=== PATIENT | female | born 1985 | race Caucasian/White ===

== ENCOUNTER 2023-10-09 22:03 | Emergency (ER) | payer BC, SELFPAY ==
[2023-10-09 22:09] VITALS: BP 134/92
[2023-10-09 22:21] LABS: Urine Albumin 1+ (Neg - Trace); Urine Bilirubin Negative (Negative); Urine Character Slightly Cloudy (Clear); Urine Color Yellow; Urine Glucose Negative (Negative); Urine Ketone Trace (Negative); Urine Leukocyte Trace (Negative); Urine Nitrite Negative (Negative); Urine Occult Blood 4+ (Negative); Urine Specific Gravity 1.025 (<1.030); Urine Urobilinogen Negative (Neg - 1+)
[2023-10-09 22:25] LABS: HCG, Urine Qualitative Screen Negative
[2023-10-09 22:28] LABS: Urine Red Blood Cell >100 /HPF (0-2); Urine Squamous Cell 16-20 /LPF (Few); Urine White Cell 0-2 /HPF (0-5)
[2023-10-09 23:41] VITALS: BMI 39.9
[2023-10-09] MEDS: ZOFRAN 4 MG IV (23:58)
[2023-10-09] MEDS: DILAUDID 1 MG IV (23:58)
[2023-10-10 00:18] LABS: % Basophils 0.6 % (0-2); % Eosinophils 3.6 % (0-6); % Immature Granulocytes 0.3 % (0-0.5); % Monocytes 8.3 % (1.7-9.3); % Neutrophils 49.2 % (42.2-75.2); Absolute Basophils 0.1 10^3/uL (0-0.2); Absolute Eosinophils 0.4 10^3/uL (0-0.7); Absolute Lymphocytes 3.8 10^3/uL (1.2-3.4); Absolute Monocytes 0.8 10^3/uL (0.1-0.6); Hematocrit 35.2 % (37.0-47.0); Hemoglobin 12.8 g/dL (12.0-16.0); Mean Corp Hgb Conc. 36.4 g/dL (33.0-37.0); Mean Corpuscular Hgb 32.2 pg (27.0-31.0); Mean Corpuscular Volume 88.7 fL (81.0-99.0); Nucleated Red Blood Cells % 0 %; Platelet Count 247 10^3/uL (130-400); Red Blood Cell Count 3.97 10^6/uL (4.20-5.40); Red Cell Dist. Width 13.1 % (11.5-14.5); White Blood Cell Count 10.1 10^3/uL (4.8-10.8)
--- NOTE | 2023-10-10 00:41 | ED.GENMED ---
History of Present Illness
General
Chief Complaint: Flank Pain
Source: patient
Exam Limitations: none
Time Seen by Provider: 10/09/23 23:47
Nursing documentation reviewed up to this point in time: agreed with
Travel History
Have you had any contact with someone who has COVID-19?: No
Do you have any symptoms of coronavirus? Fever > 100 degrees, chills, cough, shortness of breath, sore throat, loss of taste or smell, muscle aches, or headache?: No
History of Present Illness
History of Present Illness:
The patient is a 38-year-old female with a past medical history of kidney stones who comes in with complaints of 5 days of right flank pain. Patient describes it as severe. The pain is associated with nausea. She denies vomiting and fever.
Past History
Past History
ED Past Medical History: Asthma and Other (Kidney stones)
ED Past Surgical History: (X3), Gynecological (Tubel) and Tonsilectomy
Social History
Tobacco: Smoker (1/2 pack daily)
Alcohol: Occasional
Drug: None
Personal:
Living: with family
Employment: Employed
Family History
Family History: Other (Noncontributory)
Review of Systems
Review of Systems
Allergies reviewed?: Yes
All Other Systems: ROS reviewed and negative except as documented in HPI and ROS
Constitutional: Reports no symptoms
EENT: Reports no symptoms
Respiratory: Reports no symptoms
Cardiac: Reports no symptoms
ABD/GI: Reports nausea
: Reports flank pain
Musculoskeletal: Reports no symptoms
Skin: Reports no symptoms
Neurological: Reports no symptoms
Endocrine: Reports no symptoms
Hematologic/Lymphatic: Reports no symptoms
Psychiatric: Reports no symptoms
Phy Exam
Physical Exam
Physical Exam:
Physical Exam
General: no apparent distress, not acutely ill
Neck: supple. no meningeal signs. normal psoterior pharynx
Heart: s1/s2 regular rate and rhythm, no murmur. equal radial pulses.
Lungs: no acute respiratory distress. clear bilaterally
Abdomen: normal bowel sounds. not tender. no CVAT
Neuro: alert and oriented. no focal neurological deficits
Skin: no rash
Psychiatric: well kept. interactive and cooperative
Extremities: no edema. no calf tenderness. negative homans. good distal pulses
Course
Orders/Labs/Results
Orders:
Orders
10/09/23 22:11
Test Result ONCE
10/09/23 22:16
HCG, Urine Qualitative Screen Urgent
Date Specimen was Collected: 10/09/23
Time Specimen was Collected: 22:11
Urinalysis Reflex To Culture Urgent
Date Specimen was Collected: 10/09/23
Time Specimen was Collected: 22:11
Urine Microscopic Reflex Cult Urgent
10/09/23 23:52
HYDROmorphone [Dilaudid] 0.5 mg PO NOW STA
10/09/23 23:54
HYDROmorphone [Dilaudid] 1 mg IV NOW STA
Ondansetron Injectable [Zofran] 4 mg .ROUTE .STK-MED ONE
10/09/23 23:57
Ondansetron Injectable [Zofran] 4 mg IV NOW STA
10/10/23 00:10
CBC/With Diff [Complete Blood Count/With Diff] Urgent
Comprehensive Metabolic Panel Urgent
10/10/23 00:16
CT Abd/pel Without Iv Or Oral Urgent
Comment:
Reason For Exam: R flank pain
10/10/23 01:01
0.9% Sodium Chloride 1000 ml [Nss] 1,000 ml IV BOLUS
10/10/23 01:22
Oxycodone/Acetaminophen [Percocet 5/325] 2 tablet PO NOW STA
10/10/23 02:36
Naproxen [Naprosyn] 500 mg PO NOW STA
10/10/23 02:37
Tamsulosin [Flomax] 0.4 mg PO NOW STA
Abnormal Lab Results
10/09/23 10/10/23
22:16 00:10
RBC 3.97 L 10^6/uL
(4.20-5.40)
Hct 35.2 L %
(37.0-47.0)
MCH 32.2 H pg
(27.0-31.0)
Absolute Lymphs (auto) 3.8 H 10^3/uL
(1.2-3.4)
Absolute Monos (auto) 0.8 H 10^3/uL
(0.1-0.6)
Sodium 133 L mmol/L
(135-145)
Chloride 108 H mmol/L
(98-107)
Carbon Dioxide 19 L mmol/L
(22-30)
Glucose 107 H mg/dl
(70-99)
Urine Ketones Trace A
(Negative)
Ur Occult Blood Reflex 4+ A
(Negative)
Leukocyte Esterase Rfl Trace A
(Negative)
Urine RBC >100 A /HPF
(0-2)
Urine Albumin (Reflex) 1+ A
(Neg - Trace)
10/10/23 00:10
10/10/23 00:10
Vital Signs
Initial and Last Documented VS:
Initial Vital Signs
Temp Pulse Resp BP Pulse Ox
97.8 F 89 18 134/92 99
10/09/23 22:09 10/09/23 22:09 10/09/23 22:09 10/09/23 22:09 10/09/23 22:09
Last Documented Vital Signs
Temp Pulse Resp BP Pulse Ox
97.8 F 80 16 130/84 95
10/09/23 22:09 10/10/23 02:50 10/10/23 02:50 10/10/23 02:50 10/10/23 02:50
MDM/Problems Addressed
Differential Diagnosis Includes:
Acute ureteral colic, pyelonephritis, hydronephrosis
MDM/Problems Addressed:
Patient presents with acute flank pain
Chronic conditions affecting care:
History of kidney stones
Acute Exacerbation and/or Progression of Chronic Illness:
Patient is acutely hypertensive, I suspect due to pain
*Radiology
Radiology exam reviewed: radiology read reviewed
*Pulse Oximetry
Patient hypoxic: no
*EKG
Interpreted by ED Provider?: NA
*Extension Work Director Interpretation
Rate: Extension Work Director- N/A
*Critical Care Note
Total Time (30-74mins, 75-104mins- exclusive of procedures): Not Applicable
Data Reviewed
Review of Other/Old Records Reveals: Radiology Studies (CT report reviewed from 06/29/2022 which shows multiple bilateral kidney stones)
Source: patient and family
Patient Management
Social determinants of health affecting care: Strong social support
Discussion with other providers: Other (Discussed case with Dr. Apple who feels that patient could have close outpatient follow-up given that she has no fevers or chills and her pain is tolerable)
ED Attending Note
-
Portions of this chart may have been created with voice recognition software.� Occasional wrong word or��sound alike� substitutions may have occurred due to the inherent limitations of voice recognition software.
Discharge Plan
Departure
Patient Disposition: Home (Routine Discharge)
Date of Disposition: 10/10/23
Time of Disposition: 02:35
Patient with high blood pressure during this ER visit?: Yes
Condition: Good
Covid-19: Not Applicable
Discharge Problem:
Right ureteral calculus
Instructions: Renal Colic (DC), Narcotic Pain Medication
Prescriptions:
New
ondansetron 4 mg tablet,disintegrating
4 mg PO Q6H PRN (Reason: nausea and vomiting) Qty: 14 0RF
tamsulosin [Flomax] 0.4 mg capsule
0.4 mg PO DAILY 7 Days Qty: 7 0RF
oxycodone-acetaminophen [Percocet] 5-325 mg tablet
1 - 2 tab PO Q6HPRN PRN (Reason: pain) Qty: 10 0RF
No Action
ondansetron 4 MG tablet,disintegrating
4 mg PO TIDPRN PRN (Reason: nausea) Qty: 6 0RF
prednisone 20 MG tablet
40 mg PO DAILY Qty: 6 0RF
hydrocodone-acetaminophen 5-325 mg tablet
1 tab PO Q6H PRN (Reason: pain) Qty: 10 0RF
tamsulosin [Flomax] 0.4 mg capsule
0.4 mg PO DAILY Qty: 7 0RF
oxycodone-acetaminophen [Percocet] 5-325 mg Tablet
1 tab PO Q6HPRN PRN (Reason: pain) Qty: 10 0RF
ondansetron 4 mg Tablet,Disintegrating
4 mg PO TIDPRN PRN (Reason: nausea/vomiting) Qty: 12 0RF
Referrals:
Jackson Apple MD [Active] -
Gasper Dickey DO [Family Provider] -
Stand Alone Forms: Return to Work
Activity Restrictions/Additional Instructions:
Return with fever, chills or vomiting. Call urology later today to schedule an appointment for this week
Interventions
Interventions:
*Risk Screen - Suicide Last Done: 10/09/23 22:09
*General Assessment Last Done: 10/09/23 22:09
*Neglect/Abuse Screening Last Done: 10/09/23 22:09
ED- Fall Risk Assessment Last Done: 10/09/23 23:39
*ED COVID-19 Vaccine History Last Done: 10/09/23 22:09
MC-Skccmd-Ljhybrpwcl Assessment Last Done: 10/09/23 23:39
ED-Female Genitourinary Assessment Last Done: 10/09/23 23:39
[2023-10-10 00:45] LABS: ALT (SGPT) 20 U/L (0-35); AST (SGOT) 20 U/L (14-36); Albumin 4.1 g/dl (3.5-5.0); Alkaline Phosphatase 59 U/L (38-126); Blood Urea Nitrogen 16 mg/dl (7-17); Carbon Dioxide 19 mmol/L (22-30); Chloride 108 mmol/L (98-107); Estimated Creatinine Clearance 93 ml/min; Glucose 107 mg/dl (70-99); Potassium 4.1 mmol/L (3.5-5.1); Sodium 133 mmol/L (135-145); Total Bilirubin 0.3 mg/dl (0.2-1.3); Total Protein 6.6 g/dl (6.3-8.2); eGFR > 60.00
[2023-10-10 01:19] VITALS: BP 129/78
[2023-10-10] MEDS: NSS 1000 IV (01:28)
[2023-10-10] MEDS: PERCOCET 5/325 2 TABLET PO (01:29)
[2023-10-10] MEDS: NAPROSYN 500 MG PO (02:41)
[2023-10-10] MEDS: FLOMAX 0.400000000000000022 MG PO (02:42)
[2023-10-10 02:50] VITALS: BP 130/84
== END 2023-10-10 03:00 | disposition home or self-care (01) ==
LOC: EMR 22:03
PROVIDERS: EMERGENCY PHYSICIAN Emergency Medicine; FAMILY PHYSICIAN Family Medicine
DX: N20.1 Calculus of ureter (principal); R03.0 Elevated blood-pressure reading, without diagnosis of hypertension; F17.210 Nicotine dependence, cigarettes, uncomplicated; Z87.442 Personal history of urinary calculi
CPT/HCPCS: 99284; 96360; 74176; 80053; 81003; 81015; 81025; 85025

== ENCOUNTER → 2023-10-16 16:59 | Day surgery (SDC) | payer BC, SELFPAY ==
[2023-10-16] VITALS (11 sets, daily range): BP systolic 109–136; BP diastolic 56–93; BMI 40.2
[2023-10-16 11:32] LABS: Urine Albumin Negative (Neg - Trace); Urine Bilirubin Negative (Negative); Urine Character Clear (Clear); Urine Color Straw; Urine Glucose Negative (Negative); Urine Ketone Negative (Negative); Urine Leukocyte Negative (Negative); Urine Nitrite Negative (Negative); Urine Occult Blood Negative (Negative); Urine Specific Gravity 1.005 (<1.030); Urine Urobilinogen Negative (Neg - 1+)
--- NOTE | 2023-10-16 12:42 | ED.GENMED ---
History of Present Illness
General
Chief Complaint: Flank Pain
Source: patient
Exam Limitations: none
Time Seen by Provider: 10/16/23 12:30
Travel History
Have you had any contact with someone who has COVID-19?: No
Do you have any symptoms of coronavirus? Fever > 100 degrees, chills, cough, shortness of breath, sore throat, loss of taste or smell, muscle aches, or headache?: No
History of Present Illness
History of Present Illness:
See MDM
Past History
Past History
ED Past Medical History: Asthma and Other (Kidney stones)
ED Past Surgical History: (X3), Gynecological (Tubel) and Tonsilectomy
Social History
Tobacco: Smoker (1/2 pack daily)
Alcohol: Occasional
Drug: None
Personal:
Living: with family
Employment: Employed
Family History
Family History: Other (Noncontributory)
Phy Exam
Physical Exam
Physical Exam:
See MDM
Course
Orders/Labs/Results
Orders:
Orders
10/16/23 11:19
UA Reflex to Culture [Urinalysis Reflex To Culture] Urgent
Date Specimen was Collected: 10/16/23
Time Specimen was Collected: 11:09
10/16/23 12:42
HYDROmorphone [Dilaudid] 0.5 mg IV NOW STA
Ondansetron Injectable [Zofran] 4 mg IV NOW STA
10/16/23 12:53
Complete Blood Count/With Diff Urgent
Comprehensive Metabolic Panel Urgent
Vital Signs
Initial and Last Documented VS:
Initial Vital Signs
Temp Pulse Resp BP Pulse Ox
98.1 F 86 20 135/93 98
10/16/23 11:06 10/16/23 11:06 10/16/23 11:06 10/16/23 11:06 10/16/23 11:06
Last Documented Vital Signs
Temp Pulse Resp BP Pulse Ox
98.1 F 86 20 135/93 98
10/16/23 11:06 10/16/23 11:06 10/16/23 11:06 10/16/23 11:06 10/16/23 11:06
MDM/Problems Addressed
Differential Diagnosis Includes:
HPI and MDM Narrative:
38-year-old female presenting back to the emergency department with persistent right flank pain. She has been dealing with this pain for 2 weeks. She was in the emergency department 1 week ago and diagnosed with distal ureteral stone. Patient was
placed on Flomax and pain medicine. She is having trouble with a side effect of the pain medicine. She has been straining her urine and has not noticed the stone. She states her pain has not moved
Physical exam
General: Well appearing and non-toxic
HEENT: protecting airway
Neck: appears supple
CV: No evidence of cyanosis
Resp: No accessory muscle use
Abd: Non-distended. Right flank tenderness. No rebound
Extremities: No deformities
Neuro: alert
Psych: Normal affect
Skin: Intact. No rash
Problems Addressed including Acute and Chronic Conditions affecting care:
1. Right flank pain
Acuity: acute
Prognosis: stable
Details: Given persistent symptoms, will give IV pain medicine and discussed case with urology
Updates
Case discussed with urology who will evaluate and bring to the OR with the plan of discharging later today
Differential Diagnosis (but not limited to): Renal colic, obstructive kidney stone
Testing considered: Repeat CT but will discuss case with urology first
Drug therapy (if applicable): OTC meds, please see d/c instruction regarding Rx drugs
Amount and/or Complexity of Data Reviewed
Clinical info obtained from: Patient
External data reviewed: N/A
Labs I independently reviewed (but not limited to): Urinalysis negative for infection
Radiology: N/A
Pulse Ox: not hypoxic
EKG independently reviewed: N/A
Automotive Upholsterer: N/A
Critical Care: N/A
Risk of Complication:
Social Determinants of health: Good social support
Discussed with other providers: Urology
Escalation of Care includes Admit/Obs: Given persistent pain, urology will evaluate and bring to the OR for cystoscopy for possible stent placement and possible stone retrieval
Occasional wrong word or 'sound a like' substitutions may have occurred due to the inherent limitations of voice recognition software. Read the chart carefully and recognize, using context, where substitutions have occurred.
*Critical Care Note
Total Time (30-74mins, 75-104mins- exclusive of procedures): Not Applicable
ED Attending Note
-
Portions of this chart may have been created with voice recognition software.� Occasional wrong word or��sound alike� substitutions may have occurred due to the inherent limitations of voice recognition software.
Discharge Plan
Departure
Patient Disposition: OR
Date of Disposition: 10/16/23
Time of Disposition: 13:00
Presentation/result/management discussed w/ accepting MD/DO: Urology
Discharge Problem:
Kidney stone on right side
Prescriptions:
No Action
ondansetron 4 MG tablet,disintegrating
4 mg PO TIDPRN PRN (Reason: nausea) Qty: 6 0RF
prednisone 20 MG tablet
40 mg PO DAILY Qty: 6 0RF
hydrocodone-acetaminophen 5-325 mg tablet
1 tab PO Q6H PRN (Reason: pain) Qty: 10 0RF
tamsulosin [Flomax] 0.4 mg capsule
0.4 mg PO DAILY Qty: 7 0RF
oxycodone-acetaminophen [Percocet] 5-325 mg Tablet
1 tab PO Q6HPRN PRN (Reason: pain) Qty: 10 0RF
ondansetron 4 mg Tablet,Disintegrating
4 mg PO TIDPRN PRN (Reason: nausea/vomiting) Qty: 12 0RF
ondansetron 4 mg tablet,disintegrating
4 mg PO Q6H PRN (Reason: nausea and vomiting) Qty: 14 0RF
tamsulosin [Flomax] 0.4 mg capsule
0.4 mg PO DAILY 7 Days Qty: 7 0RF
oxycodone-acetaminophen [Percocet] 5-325 mg tablet
1 - 2 tab PO Q6HPRN PRN (Reason: pain) Qty: 10 0RF
Interventions
Interventions:
*Risk Screen - Suicide Last Done: 10/16/23 12:48
*General Assessment Last Done: 10/16/23 11:06
*Neglect/Abuse Screening Last Done: 10/16/23 12:48
ED- Fall Risk Assessment Last Done: 10/16/23 12:48
*ED COVID-19 Vaccine History Last Done: 10/16/23 12:48
US-Fkjjwp-Slmsocbvjz Assessment Last Done: 10/16/23 12:48
[2023-10-16] MEDS: DILAUDID 0.5 MG IV ×2 (12:51→16:23)
[2023-10-16] MEDS: ZOFRAN 4 MG IV (12:52)
[2023-10-16 13:00] LABS: % Basophils 0.6 % (0-2); % Eosinophils 7.1 % (0-6); % Immature Granulocytes 0.2 % (0-0.5); % Lymphocytes 41.5 % (20.5-51.1); % Monocytes 7.9 % (1.7-9.3); % Neutrophils 42.7 % (42.2-75.2); Absolute Eosinophils 0.5 10^3/uL (0-0.7); Absolute Lymphocytes 2.6 10^3/uL (1.2-3.4); Absolute Monocytes 0.5 10^3/uL (0.1-0.6); Absolute Neutrophils 2.7 10^3/uL (1.4-6.5); Hematocrit 36.7 % (37.0-47.0); Hemoglobin 13.1 g/dL (12.0-16.0); Mean Corp Hgb Conc. 35.7 g/dL (33.0-37.0); Mean Corpuscular Hgb 32.9 pg (27.0-31.0); Mean Corpuscular Volume 92.2 fL (81.0-99.0); Mean Platelet Volume 9.9 fL (7.4-10.4); Nucleated Red Blood Cells % 0 %; Platelet Count 228 10^3/uL (130-400); Red Blood Cell Count 3.98 10^6/uL (4.20-5.40); Red Cell Dist. Width 13.1 % (11.5-14.5); White Blood Cell Count 6.3 10^3/uL (4.8-10.8)
[2023-10-16 13:19] LABS: ALT (SGPT) 23 U/L (0-35); AST (SGOT) 21 U/L (14-36); Albumin 4.2 g/dl (3.5-5.0); Alkaline Phosphatase 61 U/L (38-126); Blood Urea Nitrogen 12 mg/dl (7-17); Carbon Dioxide 22 mmol/L (22-30); Chloride 109 mmol/L (98-107); Estimated Creatinine Clearance 120 ml/min; Glucose 96 mg/dl (70-99); Potassium 4.4 mmol/L (3.5-5.1); Sodium 136 mmol/L (135-145); Total Bilirubin 0.5 mg/dl (0.2-1.3); Total Protein 6.8 g/dl (6.3-8.2); eGFR > 60.00
[2023-10-16 13:36] LABS: HCG, Serum Qualitative Screen Negative
[2023-10-16] MEDS: OFIRMEV 100 IV (14:50)
--- NOTE | 2023-10-16 17:45 | HP.FOC2 ---
Focused History & Physical
Chief Complaint
HPI:
Chief Complaint: kidney stone
HPI / Indication for Planned Procedure: 38F prior hx of stones, p/w persistent pain 2 weeks after dx of R distal ureteral stone
No fevers/chills
labs and vitals stable
UA negative for UTI
Intractable pain despite meds at home
Relevant Past Medical History: Other (kidney stone)
Relevant Social History: Tobacco Use
Relevant Family History: Negative
Relevant Past Surgical History: Positive for (stone procedure)
Review of Systems
Review of Pertinent Systems: All Systems Negative
Medication
See Medication form for detailed medications: No
Medication List (including Herbals & OTC):
naproxen sodium 220 mg tablet (Aleve) 440 mg PO Q6HPRN PRN mild pain 10/16/23
ondansetron 4 mg disintegrating tablet 4 mg PO Q6H PRN nausea/vomiting 10/16/23
oxycodone-acetaminophen 5 mg-325 mg tablet 1 tab PO Q6H PRN severe pain 10/16/23
tamsulosin 0.4 mg capsule 0.4 mg PO HS 10/16/23
Medications Reviewed: Yes
Allergies and Reactions
Patient has Allergies: Yes
Noted Allergies and Reactions:
Allergy/AdvReac Type Severity Reaction Status Date / Time
Fish Containing Products Allergy vomit-can Verified 10/16/23 15:35
eat
shellfish
but not
regular
fish
ibuprofen Allergy Swelling Verified 12/13/22 17:56
Pertinent Physical Exam
All Other Systems: Negative
Head/Neck: Normal
Lungs: Normal
Abdomen: Normal
Extremities: Normal
Diagnosis / Assessment
38F with intractable pain from 7mm R distal ureteral stone
Plan / Procedure
OR for R ureteroscopy, laser lithotripsy, ureteral stent
ancef prophylaxis
NPO
Likely post op discharge from PACU
Outpatient follow up
Anesthesia/Sedation to be done by Anesthesia Provider: Yes
[2023-10-16] MEDS: ANCEF 10 IV (17:57)
[2023-10-16] MEDS: Pyridium 200 MG PO (19:00)
[2023-10-22 00:50] LABS: Stone Analysis Mass 26 mg
== END ==
LOC: EMR 10:58 → PACU 16:59
PROVIDERS: Physician Assistant; ATTENDING PHYSICIAN Urology; EMERGENCY PHYSICIAN Student in an Organized Health Care Education/Training Program; FAMILY PHYSICIAN Family Medicine
DX: N20.1 Calculus of ureter (principal)
CPT/HCPCS: 52353; 74018; 76000; 80053; 81003; 82365; 84703; 85025; 96374; 96375; 96376; 99284; A4300; C1758; C1769; C1894

== ENCOUNTER → 2024-07-14 18:00 | Outpatient (REF) | payer OTHER, SELFPAY | LOC: RAD 18:00 | PROVIDERS: ATTENDING PHYSICIAN Emergency Medicine | DX: J40 Bronchitis, not specified as acute or chronic (principal) | CPT/HCPCS: 71046 ==

== ENCOUNTER 2024-07-17 14:54 | Emergency (ER) | payer OTHER, SELFPAY ==
[2024-07-17 14:55] VITALS: BP 150/93
--- NOTE | 2024-07-17 16:49 | ED.GENMED ---
History of Present Illness
General
Chief Complaint: Breathing Problem
Time Seen by Provider: 07/17/24 16:49
History of Present Illness
History of Present Illness:
TIME OF INITIAL ENCOUNTER: 5 PM
HPI: The patient presents due to shortness of breath. She saw her primary care doctor who ordered an x-ray and reportedly did not show pneumonia. The patient states that her primary placed her on prednisone. She states that she does not tolerate
the prednisone and has 1 more dose of it left. The doctor also thought she may have a pneumonia and therefore placed her on doxycycline. She has a nebulizer at home. She is smoking less this week now that she has been feeling sick. She has
associated URI symptoms
EXAM:
GENERAL: Well appearing in no distress
HEENT: Moist oral mucosa, mild bulging of left TM with no evidence of acute bacterial otitis media
CARDIOVASCULAR: No murmurs, normal heart rate, regular rhythm, No chest wall tenderness, there are no rales, wheeze noted only with forceful cough
PULMONARY: No respiratory distress, breath sounds are clear and equal
ABDOMEN: Soft with no peritoneal signs, no tenderness
NEUROLOGIC: Excellent strength all extremities, no coordination deficits
PSYCHIATRIC: Appropriate mental status, normal insight and judgement
EXTREMITIES: Nontender, no edema, moves all extremities equally
SKIN: No rash, no lesions
NUMBER AND COMPLEXITY OF PROBLEMS ADDRESSED AT THE ENCOUNTER
� Chronic conditions affecting care: Asthma, smoker, 'sports induced asthma'
� Acute Exacerbation and/or Progression of Chronic Illness: This is an acute problem
� Differential Diagnosis includes: Asthma, viral bronchitis, pneumonia, highly doubt pneumothorax
AMOUNT AND/OR COMPLEXITY OF DATA TO BE REVIEWED AND ANALYZED
� I performed an independent evaluation of and my interpretation is:
EKG:
CT:
X-rays: Chest x-ray personally reviewed and agree with radiologist interpretation that there is no acute abnormality
Laboratory Studies:
Other:
� Review of other/old records: I reviewed records, the patient was seen here in October with a kidney stone; chest x-ray from 07/14/2024 showed no acute abnormality
� Clinical information was obtained by an independent historian: Spoke to mother at bedside
� Prescriptions/Medications Considered but not given:
� Further testing considered but not performed:
RISK OF COMPLICATIONS AND/OR MORBIDITY OR MORTALITY OF PATIENT MANAGEMENT
� Social determinants of health affecting care: Lives at home
� Discussion with other providers:
� Escalation of care including admission/observation vs risk of discharge considered: Given worsening symptoms, will try DuoNeb here and also obtain another chest x-ray. Favor more of a viral bronchitis. Strongly encourage
patient to stop smoking.
ANY OTHER UPDATES:
7:15 PM: I reassessed patient. She does not think that the DuoNeb really did all that much. She does not want to continue steroids and has just 1 dose left. Her vital signs are unremarkable and she is in no respiratory distress. She does
describe some pressure buildup in her ear/head�I looked in her ears and there may be some bulging of the left TM�recommended Zyrtec-D.
Past History
Past History
ED Past Medical History: Asthma and Other (Kidney stones)
ED Past Surgical History: (X3), Gynecological (Tubel) and Tonsilectomy
Social History
Tobacco: Smoker (1/2 pack daily)
Alcohol: Occasional
Drug: None
Personal:
Living: with family
Employment: Employed
Family History
Family History: Other (Noncontributory)
Phy Exam
Physical Exam
Physical Exam:
See HPI
Course
Orders/Labs/Results
Orders:
Orders
07/17/24 16:59
Ipratropium/Albuterol Sulfate [Duoneb] 3 ml INH R NOW ONE
CR Chest - 2 Views Urgent
Comment:
Reason For Exam: worsening sob wheeze
Vital Signs
Initial and Last Documented VS:
Initial Vital Signs
Temp Pulse Resp BP Pulse Ox
97.9 F 84 19 150/93 96
07/17/24 14:55 07/17/24 14:55 07/17/24 14:55 07/17/24 14:55 07/17/24 14:55
Last Documented Vital Signs
Temp Pulse Resp BP Pulse Ox
97.9 F 84 19 150/93 96
07/17/24 14:55 07/17/24 14:55 07/17/24 14:55 07/17/24 14:55 07/17/24 17:16
*Critical Care Note
Total Time (30-74mins, 75-104mins- exclusive of procedures): Not Applicable
ED Attending Note
-
Portions of this chart may have been created with voice recognition software.� Occasional wrong word or��sound alike� substitutions may have occurred due to the inherent limitations of voice recognition software.
Discharge Plan
Departure
Patient Disposition: Home (Routine Discharge)
Date of Disposition: 07/17/24
Time of Disposition: 19:21
Patient with high blood pressure during this ER visit?: Yes
Discharge Problem:
Acute viral syndrome, Acute bronchitis
Instructions: Acute Bronchitis, Adult (DC)
Prescriptions:
No Action
oxycodone-acetaminophen 5-325 mg Tablet
1 tab PO Q6H PRN (Reason: severe pain)
Patient Comments:
10/16/2023, pt. filled this med. on 10/10/2023 for 10 tablets according to PDMP.
tamsulosin 0.4 mg Capsule
0.4 mg PO HS
Patient Comments:
10/16/2023, pt. filled this med. on 10/10/2023 and is instructed to take one capsule daily for 7 days.
naproxen sodium [Aleve] 220 mg Tablet
440 mg PO Q6HPRN PRN (Reason: mild pain)
ondansetron 4 mg Tablet,Disintegrating
4 mg PO Q6H PRN (Reason: nausea/vomiting)
Referrals:
Gasper Dickey, DO [Family Provider] -
Activity Restrictions/Additional Instructions:
I recommend trying Zyrtec-D�ydean can get this at a pharmacy counter. Zyrtec is antihistamine and the D means pseudoephedrine which is a decongestant. This may help the sensation that you are having in the ears/head. Although I do not see any clear
indication for antibiotics I think would be reasonable to continue the antibiotics. The chest x-ray shows no sign of bacterial pneumonia. Return here if worse or any other concerns. We did give you a breathing treatment with both albuterol and
Atrovent.
Interventions
Interventions:
*Risk Screen - Suicide Last Done: 07/17/24 14:55
*General Assessment Last Done: 07/17/24 14:55
*Neglect/Abuse Screening Last Done: 07/17/24 14:55
ED- Fall Risk Assessment Last Done: 07/17/24 17:16
*ED COVID-19 Vaccine History Last Done: 07/17/24 17:15
ED- Cardiac Assessment Last Done: 07/17/24 17:16
ED- Pulmonary Assessment Last Done: 07/17/24 17:16
Discharge Date and Time
Print Language: JAPANESE
[2024-07-17] MEDS: DUONEB 3 ML INH (17:12)
[2024-07-17 17:15] VITALS: BMI 42.1
== END 2024-07-17 19:43 | disposition home or self-care (01) ==
LOC: EMR 14:54
PROVIDERS: EMERGENCY PHYSICIAN Emergency Medicine; FAMILY PHYSICIAN Family Medicine
DX: J20.9 Acute bronchitis, unspecified (principal); B34.9 Viral infection, unspecified; F17.200 Nicotine dependence, unspecified, uncomplicated; J45.909 Unspecified asthma, uncomplicated
CPT/HCPCS: 94640; 99283; 71046

== ENCOUNTER 2024-12-19 16:30 | Observation (INO) | payer OTHER, SELFPAY ==
[2024-12-19] VITALS (7 sets, daily range): BP systolic 115–155; BP diastolic 72–99; BMI 39.0
[2024-12-19] MEDS: DILAUDID 0.5 MG IV ×4 (12:12→15:41)
[2024-12-19] MEDS: ZOFRAN 4 MG IV (12:13)
[2024-12-19 12:16] LABS: Urine Albumin 3+ (Neg - Trace); Urine Bilirubin Negative (Negative); Urine Character Clear (Clear); Urine Color Yellow; Urine Glucose Negative (Negative); Urine Ketone 1+ (Negative); Urine Leukocyte 1+ (Negative); Urine Nitrite Negative (Negative); Urine Occult Blood 4+ (Negative); Urine Specific Gravity 1.025 (<1.030); Urine Urobilinogen 1+ (Neg - 1+)
[2024-12-19 12:19] LABS: % Basophils 0.7 % (0-2); % Eosinophils 5.5 % (0-6); % Immature Granulocytes 0.2 % (0-0.5); % Lymphocytes 35.5 % (20.5-51.1); % Monocytes 8.8 % (1.7-9.3); % Neutrophils 49.3 % (42.2-75.2); Absolute Basophils 0.1 10^3/uL (0-0.2); Absolute Eosinophils 0.5 10^3/uL (0-0.7); Absolute Lymphocytes 2.9 10^3/uL (1.2-3.4); Absolute Monocytes 0.7 10^3/uL (0.1-0.6); Absolute Neutrophils 4.1 10^3/uL (1.4-6.5); Hematocrit 38.5 % (37.0-47.0); Hemoglobin 13.6 g/dL (12.0-16.0); Mean Corp Hgb Conc. 35.3 g/dL (33.0-37.0); Mean Corpuscular Hgb 32.2 pg (27.0-31.0); Mean Corpuscular Volume 91.2 fL (81.0-99.0); Mean Platelet Volume 10.3 fL (7.4-10.4); Nucleated Red Blood Cells % 0 %; Platelet Count 232 10^3/uL (130-400); Red Blood Cell Count 4.22 10^6/uL (4.20-5.40); Red Cell Dist. Width 13.5 % (11.5-14.5); White Blood Cell Count 8.2 10^3/uL (4.8-10.8)
--- NOTE | 2024-12-19 12:25 | ED.GENMED ---
History of Present Illness
General
Chief Complaint: Flank Pain
Source: patient
Exam Limitations: none
Time Seen by Provider: 12/19/24 12:10
History of Present Illness
History of Present Illness:
39-year-old female presents complaining of 7 to 10 days worth of right flank pain that radiates to the lower abdomen. Intermittent in nature with associated nausea and vomiting. She has a known history of kidney stones. She denies fever. She
does note urinary symptoms. No chest pain or shortness of breath. No other
Past History
Past History
ED Past Medical History: Asthma and Other (Kidney stones)
ED Past Surgical History: (X3), Gynecological (Tubel) and Tonsilectomy
Social History
Tobacco: Smoker (1/2 pack daily)
Alcohol: Occasional
Drug: None
Personal:
Living: with family
Employment: Employed
Family History
Family History: Other (Noncontributory)
Phy Exam
Physical Exam
Physical Exam:
General: Uncomfortable appearing female no acute distress
HEENT: Normocephalic atraumatic
Heart: Regular rate and rhythm
Lungs: Clear no wheeze
Abdomen is soft tender to the right costovertebral angle and right lower abdomen. No guarding or rebound normal bowel sounds
Extremities: No cyanosis
Course
Orders/Labs/Results
Orders:
Orders
12/19/24 12:08
Complete Blood Count/With Diff Urgent
Urinalysis Reflex To Culture Urgent
Date Specimen was Collected: 12/19/24
Time Specimen was Collected: 12:06
Urine Microscopic Reflex Cult Urgent
Urine Culture Urgent
PAUL Source: U
Specimen Description:
Date Specimen was Collected: 12/19/24
Time Specimen was Collected: 12:06
12/19/24 12:09
Comprehensive Metabolic Panel Urgent
12/19/24 12:10
HYDROmorphone [Dilaudid] 0.5 mg IV NOW STA
Ondansetron Injectable [Zofran] 4 mg IV NOW STA
12/19/24 12:11
HYDROmorphone [Dilaudid] 0.5 mg .ROUTE .STK-MED ONE
Ondansetron Injectable [Zofran] 4 mg .ROUTE .STK-MED ONE
12/19/24 12:49
HYDROmorphone [Dilaudid] 0.5 mg IV NOW STA
12/19/24 13:28
CT Abd/pel Without Iv Or Oral Urgent
Comment:
Reason For Exam: right flank pain
12/19/24 13:51
HYDROmorphone [Dilaudid] 0.5 mg IV NOW STA
12/19/24 14:57
Tamsulosin [Flomax] 0.4 mg PO NOW STA
Abnormal Lab Results
12/19/24 12/19/24
12:08 12:09
MCH 32.2 H pg
(27.0-31.0)
Absolute Monos (auto) 0.7 H 10^3/uL
(0.1-0.6)
Chloride 112 H mmol/L
(98-107)
Glucose 118 H mg/dl
(70-99)
Urine Ketones 1+ A
(Negative)
Ur Occult Blood Reflex 4+ A
(Negative)
Leukocyte Esterase Rfl 1+ A
(Negative)
Urine RBC 3-6 A /HPF
(0-2)
Urine Bacteria (Reflex) Moderate A
(Negative)
Urine Albumin (Reflex) 3+ A
(Neg - Trace)
12/19/24 12:08
12/19/24 12:09
Vital Signs
Initial and Last Documented VS:
Initial Vital Signs
Temp Pulse Resp BP Pulse Ox
98.7 F 94 18 155/99 99
12/19/24 11:04 12/19/24 11:04 12/19/24 11:04 12/19/24 11:04 12/19/24 11:04
Last Documented Vital Signs
Temp Pulse Resp BP Pulse Ox
98.7 F 94 18 155/99 99
12/19/24 11:04 12/19/24 11:04 12/19/24 11:04 12/19/24 11:04 12/19/24 11:04
MDM/Problems Addressed
Differential Diagnosis Includes:
Right flank pain. Patient is allergic to NSAIDs. Will treat symptoms with Zofran fluids and Dilaudid. Consider renal colic versus pyelonephritis versus appendicitis
CT pending
*Critical Care Note
Total Time (30-74mins, 75-104mins- exclusive of procedures): Not Applicable
Update Note
Update Note:
CT demonstrates 7.8 mm stone of the right UVJ with hydronephrosis. Patient has required multiple doses of pain medicine here without any significant relief. Urinalysis reviewed culture is pending. Discussed with urology. Patient's white count is
normal does not have a fever no evidence of renal failure. Per urology, patient does not meet emergency surgical criteria however is in significant pain. Will mid to hospitalist for pain control
ED Attending Note
-
Portions of this chart may have been created with voice recognition software.� Occasional wrong word or��sound alike� substitutions may have occurred due to the inherent limitations of voice recognition software.
Discharge Plan
Departure
Patient Disposition: Admit
Date of Disposition: 12/19/24
Time of Disposition: 15:02
Presentation/result/management discussed w/ accepting MD/DO: Hospitalist
Discharge Problem:
Kidney stone
Prescriptions:
No Action
oxycodone-acetaminophen 5-325 mg Tablet
1 tab PO Q6H PRN (Reason: severe pain)
Patient Comments:
10/16/2023, pt. filled this med. on 10/10/2023 for 10 tablets according to PDMP.
tamsulosin 0.4 mg Capsule
0.4 mg PO HS
Patient Comments:
10/16/2023, pt. filled this med. on 10/10/2023 and is instructed to take one capsule daily for 7 days.
naproxen sodium [Aleve] 220 mg Tablet
440 mg PO Q6HPRN PRN (Reason: mild pain)
ondansetron 4 mg Tablet,Disintegrating
4 mg PO Q6H PRN (Reason: nausea/vomiting)
Referrals:
Char Felix MD [Family Provider] -
Interventions
Interventions:
*Risk Screen - Suicide Last Done: 12/19/24 11:04
*General Assessment Last Done: 12/19/24 11:04
*Neglect/Abuse Screening Last Done: 12/19/24 11:04
*ED- Fall Risk Assessment Last Done: 12/19/24 12:16
*ED COVID-19 Vaccine History Last Done: 12/19/24 12:16
QZ-Nppvsw-Nwjfparhwd Assessment Last Done: 12/19/24 12:16
ED-Female Genitourinary Assessment Last Done: 12/19/24 12:17
Discharge Date and Time
Print Language: MONEGASQUE
[2024-12-19 12:33] LABS: ALT (SGPT) 25 U/L (0-35); AST (SGOT) 19 U/L (14-36); Albumin 4.3 g/dl (3.5-5.0); Alkaline Phosphatase 58 U/L (38-126); Blood Urea Nitrogen 16 mg/dl (7-17); Calcium 9.7 mg/dl (8.4-10.2); Carbon Dioxide 23 mmol/L (22-30); Chloride 112 mmol/L (98-107); Estimated Creatinine Clearance 102 ml/min; Glucose 118 mg/dl (70-99); Potassium 4.2 mmol/L (3.5-5.1); Sodium 143 mmol/L (135-145); Total Bilirubin 0.4 mg/dl (0.2-1.3); eGFR > 60.00
[2024-12-19 13:03] LABS: Urine Bacteria Moderate (Negative); Urine Squamous Cell 16-20 /LPF (Few)
--- NOTE | 2024-12-19 14:58 | CONS.URO ---
Addendum entered and electronically signed by Vincent Lira MD 12/31/24 11:56:
12/19/2024 14:45 = date and time of consultation performance
Original Note:
Consultation
-
Requesting Provider: ED
Performing Provider: Pankaj
Reason for Consultation: right ureteral stone with intractable pain and vomiting
Medical History
History of Present Illness
ED note: '39-year-old female presents complaining of 7 to 10 days worth of right flank pain that radiates to the lower abdomen. Intermittent in nature with associated nausea and vomiting. She has a known history of kidney stones. She denies
fever.'
h/o recurrent calcium oxalate urolithiasis -- Right ureteroscopy and laser lithotripsy by Dr Reich 10/2023, Dr Rojas 04/2014
Past Medical History
Past Medical History: Asthma and Other (obesity)
Past Surgical History: Other ( (X3), Gynecological (BTL), Tonsilectomy, Ureteroscopy x2)
Social History
Tobacco: Smoker
Personal:
Living: With Family
Allergies/Home Medications
Allergies
Allergy/AdvReac Type Severity Reaction Status Date / Time
Fish Containing Products Allergy vomit-can Verified 10/16/23 15:35
eat
shellfish
but not
regular
fish
ibuprofen Allergy Swelling Verified 12/13/22 17:56
Home Medications
�Medication �Instructions �Recorded �Confirmed �Type
naproxen sodium 220 mg tablet 440 mg PO Q6HPRN PRN mild pain 10/16/23 10/16/23 History
(Aleve)
ondansetron 4 mg disintegrating 4 mg PO Q6H PRN nausea/vomiting 10/16/23 10/16/23 History
tablet
oxycodone-acetaminophen 5 mg-325 1 tab PO Q6H PRN severe pain 10/16/23 10/16/23 History
mg tablet
tamsulosin 0.4 mg capsule 0.4 mg PO HS 10/16/23 10/16/23 History
Physical Exam
Vital Signs
Vital Signs
Temp Pulse Resp BP Pulse Ox
98.7 F 94 18 155/99 99
12/19/24 11:04 12/19/24 11:04 12/19/24 11:04 12/19/24 11:04 12/19/24 11:04
Lab / Testing Results
Laboratory Results
12/19/24 12:08
12/19/24 12:09
Physical Exam
adult female on ED gurney
appears ill but not toxic
'I feel high from all the narcotics'
Genito-urinary: Costovertebral Angle Tend (right)
Skin: Warm
Neuro: Awake and Alert
Psych: Calm and Intact Judgement
Assessment / Plan
-
Right Ureteral Stone: 7-9 mm, at UVJ
Bilateral Nephrolithiasis -- largest is ~ 9 mm on left
no evidence of systemic infection
after consideration of options, pt elects proceeding to OR -- consent signed
Data Reviewed
-
CT Scan: Image personally visualized and interpreted
--- NOTE | 2024-12-19 15:05 | HPS.HSE ---
Family Physician
-
Family Physician: Char Felix MD
Chief Complaint
-
right flank pain
History of Present Illness
Patient is a 39-year-old female wit past medical history significant for asthma and Hx kidney stones who presented to [facility] ED for evaluation of right flank pain for last 10 days. Patient reports she has history of kidney stones and has been able to
tolerate at home and pass stone with increased fluid intake. She states pain started approximately 10 days ago and she has increased her fluid intake and has been unable to pass stone. She reports 2 previous occasions where stone did not pass on its
own and urology had to intervene. Patient states she has just had pain up until today where she is now experiencing urinary urgency, nausea and 2 episodes of emesis. Denies any fever, chills, shortness of breath, or chest pain.
Medical History
Past Medical History
Past Medical History: Reports Other
Additional Past Medical History:
asthma
anxiety
Hx kidney stones
Past Surgical History: Reports Other
Additional Past Surgical History:
x3
tonsillectomy
Left ACL repair
Social History
Tobacco: Smoker (1/2 pack per day )
Alcohol: Occasional
Drug: None
Personal:
Living: With Family
Employment: Employed
Family History
Family History: Not pertinent
Allergies / Home Medications
Allergies reflects when Allergies were last updated in [employer].
Home Medications with original date entered in [employer]
Allergy/Medication List:
Allergies
Allergy/AdvReac Type Severity Reaction Status Date / Time
Fish Containing Products Allergy vomit-can Verified 10/16/23 15:35
eat
shellfish
but not
regular
fish
ibuprofen Allergy Swelling Verified 12/13/22 17:56
Home Medications
albuterol sulfate 90 mcg/actuation aerosol inhaler 2 puff inhalation R Q4HPRN PRN SOB/WHEEZING 12/19/24
alprazolam 0.5 mg tablet 0.25 - 0.5 mg PO DAILYPRN PRN ANXIETY 12/19/24
diphenhydramine 25 mg-acetaminophen 500 mg tablet (Tylenol PM Extra Strength) 2 tab PO HSPRN PRN SLEEP 12/19/24
Review of Systems
-
History Source: Patient
Constitutional: Reports Sleep Disturbance
EENT: Reports No Symptoms
Respiratory: Reports No Symptoms
Cardiac: Reports No Symptoms
Abdomen/GI: Reports Nausea and Vomiting
: Reports Flank Pain, Urgency and Bleeding
Musculoskeletal: Reports No Symptoms
Skin: Reports No Symptoms
Neurological: Reports No Symptoms
Endocrine: Reports No Symptoms
Hematologic/Lymphatic: Reports No Symptoms
Psych: Reports No Symptoms
Physical Exam
Vital Signs
Vital Signs
Temp Pulse Resp BP Pulse Ox
98.7 F 94 18 155/99 99
12/19/24 11:04 12/19/24 11:04 12/19/24 11:04 12/19/24 11:04 12/19/24 11:04
Physical Exam
General: Well Developed, Well Nourished, Pain and Morbidly Obese
HEENT: NormoCephalic, Moist mucous membranes, Atraumatic, Bishop Conjunctivae, Nose Appears Normal and Ears Appear Normal
Respiratory: Clear
Cardiac: S1/S2 and Regular Rhythm; No Murmur or Rub
GI: Soft, Non Distended, Normal Bowel Sounds and Tender; No Organomegaly
Rectal: Deferred by Provider
Genito-urinary: Costovertebral angle tend
Musculoskeletal: No Clubbing, No Cyanosis and No Edema
Skin: IV/Catheter Site
Neuro: Awake, Alert, AO x 3 and Nonfocal/grossly intact
Psych: Calm and Intact Judgment/Insight
Laboratory Results
-
12/19/24 12:08
12/19/24 12:09
Laboratory Results
Total Bilirubin 0.4 mg/dl (0.2-1.3) 12/19/24 12:09
AST 19 U/L (14-36) 12/19/24 12:09
ALT 25 U/L (0-35) 12/19/24 12:09
Alkaline Phosphatase 58 U/L (38-126) 12/19/24 12:09
Data Reviewed
-
CT Scan: Report Reviewed by me (Abd/Pel: 1. Moderate RIGHT hydronephrosis and hydroureter secondary to a 7.8 mm calculus at the right UVJ. Moderate fat stranding adjacent to the renal pelvis extending along the ureter. Additional nonobstructive
calculi bilaterally. 2. 3.5 mm nodule within the left lower lobe. Nonspecific sca)
Lab Data: Labs Reviewed by me
Impression/Plan
-
IMPRESSION/PLAN:
#Kidney stone
#moderate right hydronephrosis
Hx kidney stones
UA: indicative of UTI
Urine Cx: pending
Abd/Pel CT: 1. Moderate RIGHT hydronephrosis and hydroureter secondary to a 7.8 mm calculus at the right UVJ. Moderate fat stranding adjacent to the renal pelvis extending along the ureter. Additional
nonobstructive calculi bilaterally.
2. 3.5 mm nodule within the left lower lobe. Nonspecific scattered groundglass opacities within both lower lobes.
3. Small hiatal hernia.
4. Additional findings above.
- Admit to med/surg
- start Flomax
- pain management
- antiemetics
- IV antibiotics for risk of urosepsis
#asthma
- continue Albuterol HFA PRN
Code status: full code
DVT prophylaxis: SCDs
[2024-12-19] MEDS: FLOMAX 0.4 MG PO (15:10)
--- NOTE | 2024-12-19 15:13 | HPS.HSE ---
Family Physician
-
Family Physician: Char Felix MD
Chief Complaint
-
h Right flank pain
History of Present Illness
39F smoker HX Kidney stone , known 7.8mm stone at the Rt UVJ with hydronephrosis - failed to pass over last 10 days
- associated with Right flank pain due to Rt ureteric colic with passage of stone
- At ER s/p several doses of pain Meds here with minimal relief.
- Intermittent in nature with associated nausea and vomiting.
ROS:
- denies fever. She does note urinary symptoms. No chest pain or shortness of breath. No other
Medical History
Past Medical History
Past Medical History: Reports Other (kidney stones )
Past Surgical History: Reports None
Social History
Tobacco: Non-smoker
Alcohol: None
Drug: None
Family History
Family History: Not pertinent
Allergies / Home Medications
Allergies reflects when Allergies were last updated in [employer].
Home Medications with original date entered in [employer]
Allergy/Medication List:
Allergies
Allergy/AdvReac Type Severity Reaction Status Date / Time
Fish Containing Products Allergy vomit-can Verified 10/16/23 15:35
eat
shellfish
but not
regular
fish
ibuprofen Allergy Swelling Verified 12/13/22 17:56
Home Medications
naproxen sodium 220 mg tablet (Aleve) 440 mg PO Q6HPRN PRN mild pain 10/16/23
ondansetron 4 mg disintegrating tablet 4 mg PO Q6H PRN nausea/vomiting 10/16/23
oxycodone-acetaminophen 5 mg-325 mg tablet 1 tab PO Q6H PRN severe pain 10/16/23
tamsulosin 0.4 mg capsule 0.4 mg PO HS 10/16/23
Review of Systems
-
Constitutional: Reports No Symptoms
EENT: Reports No Symptoms
Respiratory: Reports No Symptoms
Cardiac: Reports No Symptoms
Abdomen/GI: Reports No Symptoms
: Reports See HPI
Musculoskeletal: Reports No Symptoms
Skin: Reports No Symptoms
Neurological: Reports No Symptoms
Endocrine: Reports No Symptoms
Hematologic/Lymphatic: Reports No Symptoms
Psych: Reports No Symptoms
Physical Exam
Vital Signs
Vital Signs
Temp Pulse Resp BP Pulse Ox
98.7 F 94 18 155/99 99
12/19/24 11:04 12/19/24 11:04 12/19/24 11:04 12/19/24 11:04 12/19/24 11:04
Physical Exam
General: Well Developed, Well Nourished and No Apparent Distress
HEENT: NormoCephalic, Moist mucous membranes and Atraumatic
Respiratory: Clear
Cardiac: S1/S2 and Regular Rhythm; No Murmur or Rub
GI: Soft, Non Tender, Non Distended and Normal Bowel Sounds; No Organomegaly
Rectal: Deferred by Provider
Genito-urinary: Costovertebral angle tend (Rt sided )
Musculoskeletal: No Clubbing, No Cyanosis and No Edema
Skin: No Rash
Neuro: Nonfocal/grossly intact
Laboratory Results
-
12/19/24 12:08
12/19/24 12:09
Laboratory Results
Total Bilirubin 0.4 mg/dl (0.2-1.3) 12/19/24 12:09
AST 19 U/L (14-36) 12/19/24 12:09
ALT 25 U/L (0-35) 12/19/24 12:09
Alkaline Phosphatase 58 U/L (38-126) 12/19/24 12:09
Data Reviewed
-
CT Scan: Report Reviewed by me
Lab Data: Labs Reviewed by me
Impression/Plan
-
Vital Signs
Temp Pulse Resp BP Pulse Ox
98.7 F 94 18 155/99 99
12/19/24 11:04 12/19/24 11:04 12/19/24 11:04 12/19/24 11:04 12/19/24 11:04
CT Abd/pel Without Iv Or Oral
1. Moderate RIGHT hydronephrosis and hydroureter secondary to a 7.8 mm calculus at the right UVJ. Moderate fat stranding adjacent to the renal pelvis extending along the ureter. Additional nonobstructive calculi bilaterally.
2. 3.5 mm nodule within the left lower lobe. Nonspecific scattered groundglass opacities within both lower lobes.
3. Small hiatal hernia.
4. Additional findings above.Labs
ASSESSMENT & PLAN
Pending Rx reconciliation
7.8mm stone at the Rt UVJ with hydronephrosis - failed to pass over last 10 days
Right flank pain and Rt CVA tenderness due to Rt ureteric colic with passage of stone
HX kidney stone
At ER s/p several doses of pain Meds ( IV Dilaudid 0.5 mg x 3, IV Zofran) here with minimal relief.
- ER REFRIGERATOR REPAIRMAN d/w Urology (Pankaj) who said she does not meet emergency surgical criteria.
- Observe and admitted for pain control
- c/w CHILDREN'S NURSERY ASSISTANT Flomax
- PRN IV Dilaudid 0.5mg q4H wit hold index for altered mentation
- PRN IV Zofran for nausea
- IV NS 100 /Hr
- Empiric IV CFTX due to relatively long duration for passage of stone and risk of urosepsis
- Urology consult
DVT Px: SCD
Code: Full
IP MS
[2024-12-19] MEDS: Pyridium 200 MG PO (17:32)
--- NOTE | 2024-12-31 14:59 | OID.L.PAT ---
Pulmonary Nodule Pat Letter
- -
12/31/24
VEE HURLEY
[address]
[place], [place] [address]
Shana BAXTER,
A pulmonary nodule was seen on an imaging study done by [facility]. This was reviewed by the [facility] Pulmonary Nodule Advisory Board and the following recommendation was made:
Recommendation: Follow up CT Chest - now
If you have any questions, please do not hesitate to contact your primary care physician. If you are in need of a Physician, you can go to [email or web address] and click on 'Find a Provider'. Type 'Family Medicine' in the search.
Oncology Nurse Navigator
[facility]
[phone]
--- NOTE | 2024-12-31 14:59 | OID.L.REC ---
Pulmonary Nodule Follow Up
- Recommendation
12/31/24
Pulmonary Nodule Review Recommendations
Your patient, VEE HURLEY, had a pulmonary nodule seen on an imaging study done on 12/19/24 in the [facility] Radiology Department. This was reviewed by the [facility] Pulmonary Nodule Advisory Board and the
following recommendation was made:
Recommendation: Follow up CT Chest - now
If you have any questions, please do not hesitate to contact us.
Sincerely,
Oncology Nurse Navigator
[facility]
[phone]
== END 2024-12-19 18:11 | disposition home or self-care (01) ==
LOC: PACUI 16:30
PROVIDERS: ADMITTING PHYSICIAN Internal Medicine; EMERGENCY PHYSICIAN Emergency Medicine; FAMILY PHYSICIAN Emergency Medicine; OTHER PHYSICIAN Specialist
DX: N13.2 Hydronephrosis with renal and ureteral calculous obstruction (principal); Z87.442 Personal history of urinary calculi; J45.909 Unspecified asthma, uncomplicated; F17.210 Nicotine dependence, cigarettes, uncomplicated; R91.1 Solitary pulmonary nodule; K44.9 Diaphragmatic hernia without obstruction or gangrene
CPT/HCPCS: 52356; 74018; 74176; 76000; 80053; 81003; 81015; 85025; 87086; 96374; 96375; 96376; 99284; C2617